=== PATIENT | female | born 1970 | race Caucasian/White ===

== ENCOUNTER 2017-03-24 20:04 | Inpatient (IN) | payer MEDICAID ==
[~2017-03-24] VITALS: Ht 157.5 cm; Wt 56.5 kg
[2017-03-24 21:04] LABS: UA SPECIFIC GRAVITY <=1.005 (1.005-1.035); microscopic required? YES; urine erythrocyte 3+ (NEGATIVE)
[2017-03-24 21:14] LABS: CALCIUM 8.6 mg/dL (8.5-10.1); CARBON DIOXIDE 27.5 mmol/L (21-32); CHLORIDE SERUM 105 mmol/L (98-107); CREATININE SERUM 0.9 mg/dL (0.6-1.0); GFR1 > 60 mL/min; GLUCOSE SERUM 97 mg/dL (74-106); SODIUM SERUM 140 mmol/L (136-145)
[2017-03-24 21:16] LABS: BASOPHIL % 0.4 % (0-2); PLATELET COUNT 419 x10^3mcL (130-400); RED CELL DISTRIBUTION WIDTH 16.9 % (11.5-14.5)
[2017-03-24 21:20] LABS: ALBUMIN 2.9 g/dL (3.4-5.0); ALKALINE PHOSPHATASE 398 U/L (46-116); ALT/SGPT 145 U/L (14-59); AST/SGOT 175 U/L (15-37); BILIRUBIN TOTAL 0.51 mg/dL (0.20-1.00); LIPASE 128 IU/L (73-393); TOTAL PROTEIN, SERUM 7.2 g/dL (6.4-8.2)
[2017-03-24] MEDS ORDERED: GABAPENTIN800 M1 PO (21:41)
[2017-03-24] MEDS ORDERED: IBUPROFEN400 MG PO (21:41)
[2017-03-24] MEDS ORDERED: TOPCARE OMEPRAZ20 MG PO (21:42)
[2017-03-24] MEDS ORDERED: OMEPRAZOLE40 M1 PO (21:44)
[2017-03-24] MEDS ORDERED: IBUPROFEN400 MG (21:45)
[2017-03-24] MEDS ORDERED: NEU300 PO (21:45)
[2017-03-24 22:18] LABS: AMPHETAMINE QUAL UR NONE DETECTED (NEG <=1000)
[2017-03-24 22:19] LABS: CHOLESTEROL/HDL RATIO 4.4; MAGNESIUM 2.1 mg/dL (1.8-2.4); PHOSPHOROUS 3.6 mg/dL (2.5-4.9)
[2017-03-24 22:26] LABS: FREE T4 1.57 ng/dL (0.76-1.46); FREE THYROXINE INDEX 2.7 ug/dL (1.4-4.5); T3 TOTAL 0.93 ng/mL; T4(THYROXINE) 9.8 ug/dL (4.7-13.3)
[2017-03-24 22:33] LABS: RED BLOOD CELLS 3.83 M/mm3 (4.10-5.10)
[2017-03-24 22:38] LABS: TOTAL IRON BINDING CAPACITY 413 ug/dL (250-450)
[2017-03-24 22:41] VITALS: BP 133/82
[2017-03-24 22:49] LABS: IRON 16 ug/dL (50-170)
[2017-03-25 06:04] VITALS: BP 118/70
[2017-03-25 09:25] VITALS: BP 123/78
[2017-03-25 10:35] VITALS: BP 156/94
[2017-03-25 13:00] VITALS: BP 133/84
[2017-03-25 17:33] VITALS: BP 139/87
[2017-03-25 21:43] VITALS: BP 124/79
[2017-03-26 05:57] LABS: BASOPHIL % 0.3 % (0-2); PLATELET COUNT 358 x10^3mcL (130-400)
[2017-03-26 06:03] VITALS: BP 126/77
[2017-03-26 06:12] LABS: CALCIUM 8.4 mg/dL (8.5-10.1); CARBON DIOXIDE 27.9 mmol/L (21-32); CHLORIDE SERUM 106 mmol/L (98-107); CREATININE SERUM 0.6 mg/dL (0.6-1.0); GFR1 > 60 mL/min; GLUCOSE SERUM 93 mg/dL (74-106); PHOSPHOROUS 3.1 mg/dL (2.5-4.9); POTASSIUM SERUM 4.1 mmol/L (3.5-5.1); SODIUM SERUM 139 mmol/L (136-145)
[2017-03-26 06:41] LABS: RED CELL DISTRIBUTION WIDTH 16.6 % (11.5-14.5)
[2017-03-26 06:42] LABS: rbc morphology (normal/abnorm) ABNORMAL (NORMAL)
[2017-03-26 09:55] VITALS: BP 134/79
[2017-03-26 13:21] VITALS: BP 137/80
[2017-03-26] MEDS ORDERED: FERL PO (14:49)
[2017-03-26] MEDS ORDERED: MSC15 PO (15:11)
[2017-03-26 15:56] VITALS: BP 137/80
== END 2017-03-26 16:30 | disposition home or self-care (01) | DRG 281 ==
LOC: ED 20:04 → DU 21:57
PROVIDERS: Emergency Medicine; ADMIT Family Medicine Sports Medicine
PROC: 0FB13ZX Excision of Right Lobe Liver, Percutaneous Approach, Diagnostic (ICD-10-PCS; principal; 2017-03-25)
DX: C78.7 Secondary malignant neoplasm of liver and intrahepatic bile duct (principal); E44.0 Moderate protein-calorie malnutrition; C79.82 Secondary malignant neoplasm of genital organs; R73.03 Prediabetes; K21.9 Gastro-esophageal reflux disease without esophagitis; D50.9 Iron deficiency anemia, unspecified; R74.0 Nonspecific elevation of levels of transaminase and lactic acid dehydrogenase [LDH]; Z68.22 Body mass index [BMI] 22.0-22.9, adult; Z85.820 Personal history of malignant melanoma of skin
CPT/HCPCS: 36600; 82962; 83880; 84439; 90658; J1644; J1885; J2001; J2270; J3010; J7030; Q0092; Q9967